=== PATIENT | male | born 1985 | race Hispanic/Latino ===

== ENCOUNTER 2022-09-17 20:24 | Emergency (ER) | payer SELFPAY ==
[~2022-09-17] VITALS: Ht 172.7 cm; Wt 102.1 kg
[2022-09-17] MEDS ORDERED: VISTARIL25 MG PO (22:29)
[2022-09-17] MEDS ORDERED: LORAZEPAM 1 MG TAB PO ONE (22:45)
[2022-09-17] MEDS ORDERED: LORAZEPAM 0.5 MG TAB PO ONE (23:00)
[2022-09-18] MEDS ORDERED: LORAZEPAM 0.5 MG TAB ONE (06:44)
== END 2022-09-17 22:56 | disposition home or self-care (01) ==
LOC: FSED 20:55
DX: R07.89 Other chest pain (principal); F14.10 Cocaine abuse, uncomplicated; F41.9 Anxiety disorder, unspecified; R94.31 Abnormal electrocardiogram [ECG] [EKG]
CPT/HCPCS: 80053; 80307; 82553; 84484; 85025; 93005; 99283